=== PATIENT | male | born 1970 | race Caucasian/White ===

== ENCOUNTER 2016-05-25 11:27 | Outpatient (CLI) | payer OTHER | END 2016-05-25 11:28 | disposition home or self-care (01) | DX: G47.33 Obstructive sleep apnea (adult) (pediatric) (principal) ==

== ENCOUNTER 2016-11-06 12:34 | Outpatient (CLI) | payer OTHER ==
--- NOTE | 2016-11-06 14:08 | XRAY Report ---
EXAM: LUMBOSACRAL SPINE RADIOGRAPHY EXAM DATE: 11/06/2016 01:41 PM. CLINICAL HISTORY: Low back pain, rule out evidence of herniated disk. COMPARISONS: Lumbar MRI dated 11/06/2016. TECHNIQUE: 2 views. FINDINGS: Alignment: Normal. No spondylolisthesis or scoliosis. Bones: Five nsy-xta-zylueqe lumbar vertebral bodies are present. No fractures or bone lesions. Disks: Normal. Disk heights are maintained. Facets: No degenerative changes. Sacroiliac Joints: Unremarkable. Soft Tissues: Normal. The visualized bowel gas pattern is normal. IMPRESSION: Normal lumbar spine radiography. No disk space narrowing or degenerative changes identifi ed. [facility] Referring Provider Line: [phone] SITE ID: [id number]
--- NOTE | 2016-11-07 21:42 | MRI Report ---
EXAM: MRI LUMBAR SPINE WITHOUT CONTRAST EXAM DATE: 11/06/2016 01:32 PM. CLINICAL HISTORY: HERNIATED DISC VS OTHER PATHOLOGY, LOW BACK PAIN. COMPARISON: Radiograph lumbar spine 11/06/2016 TECHNIQUE: Multiplanar, multisequence T1-weighted and fluid-sensitive sequences of the lumbar spine f rom T12 to S1 without contrast. Other: None. FINDINGS: Spinal Cord: The conus terminates at L1. No signal abnormality in the visualized spinal cord. Alignment: Normal. No scoliosis or spondylolisthesis. Bone Marrow: Five fam-otf-aakcpoh lumbar vertebral bodies are assumed. No gross fractures or bone les ions. No bone marrow edema. Disk Levels/Facets: T12-L1: Unremarkable. L1-L2: Unremarkable. L2-L3: Unremarkable. L3-L4: Minimal disk bulge. No significant central canal or neuroforaminal narrowing. L4-L5: Mild disk bulge. Mild bilateral facet arthropathy. Mild anterior dural compression. No signifi cant central canal narrowing. Mild bilateral neuroforaminal narrowing. L5-S1: Mild disk bulge. Mild to moderate bilateral facet arthropathy. No significant central canal na rrowing. Mild bilateral neuroforaminal narrowing. Musculature: Normal. No edema or fatty atrophy. Other: The visualized pelvic cavity is unremarkable. IMPRESSION: 1. No evidence of fracture. No bone marrow edema. No cord signal abnormality at any level. Normal rita tomic alignment. 2. Mild degenerative spondylosis involving levels L3-L4 through L5-S1, as detailed above. No signific ant central canal narrowing at these or any other lumbar levels. Mild bilateral neuroforaminal narrow ing at L4-L5 and L5-S1 levels. No significant neuroforaminal narrowing elsewhere. Comment: The following findings are so common in adults without low back pain that while we report th eir presence, they must be interpreted with caution and in the context of the clinical situation. (Re becca Navarrete et al, Spine 2001) Prevalence of findings in patients without low back pain: Disk degeneration (any evidence): 92% Disk desiccation/T2 signal loss: 83% Disk height loss: 56% Disk bulge: 64% Disk protrusion: 32% Annular tear/high intensity zone: 38% [facility] Referring Provider Line: [phone] SITE ID: [id number]
== END 2016-11-06 12:35 | disposition home or self-care (01) ==
LOC: DI 12:34
DX: M47.896 Other spondylosis, lumbar region (principal); M47.897 Other spondylosis, lumbosacral region
CPT/HCPCS: 72100; 72148

== ENCOUNTER 2017-06-20 10:55 | Outpatient (CLI) | payer OTHER | END 2017-06-20 10:56 | disposition home or self-care (01) | LOC: SC 10:55 | PROVIDERS: ATTEND Nurse Practitioner Family | DX: G47.33 Obstructive sleep apnea (adult) (pediatric) (principal) | CPT/HCPCS: 99212; 99214 ==

== ENCOUNTER 2018-08-15 13:03 | Outpatient (CLI) | payer OTHER | END 2018-08-15 13:04 | disposition home or self-care (01) | LOC: SC 13:03 | PROVIDERS: ATTEND Nurse Practitioner Family | DX: G47.33 Obstructive sleep apnea (adult) (pediatric) (principal) | CPT/HCPCS: 99212; 99214 ==

== ENCOUNTER 2019-08-27 16:34 | Outpatient (CLI) | payer OTHER ==
--- NOTE | 2019-08-27 15:57 | SLEEP CARE CONSULTATION ---
Information from patient questionnaire entered by Brigitte Blackwell. I have reviewed and concur with the information entered by Brigitte Blackwell. This document represents the service I personally performed and the decisions made by me, Lizeth Ybarra MD, [facility]. History of Present Illness Service Date and Time: 08/27/2019 1400 Previous diagnosis: Mild, Obstructive Sleep Apnea-Hypopnea Syndrome AHI: 11.2 Reason for follow up: annual Equipment type: CPAP Equipment obtained from: [facility] additional information: To minimize the risk of COVID-19 exposure, the patient has requested and consented to this video telemedicine visit. The patient also agrees to having his insurance billed. HPI: Mr. Painting was called today to follow up on the nasal CPAP therapy. He was diagnosed to have mild obstructive sleep apnea-hypopnea syndrome. The patient wears a Respironics AmaraView full face mask. He reports using the device nightly and all through the night. The compliance report shows usage in 90 nights out of the past 90 nights, averaging 5.1 hours a night. The > 4 hour compliance rate for the past 90 days is 76.7%. He complained of no particular problem with the device such as soreness on the face, dry nose, epistaxis, nasal congestion or headache. He thinks that the pressure of 7 cmH2O is comfortable. On the CPAP therapy he notices improvement in his sleep quality, and that he wakes up feeling fresher in the morning and more awake/alert during the day. The average residual AHI is 2; and average time in large leak per day is 17.6 minutes. CPAP Compliance Data - Data Reviewed with Patient Average duration of nightly device use: 5h 6m Compliance rate %: 76.7 (90 days) Current pressure setting (cmH2O): 7 Average residual AHI: 2.0 Average large leak: 17m 37s Subjective Patient concerns: reports: other (transfer DME as problems getting supplies) Initial [place] Sleepiness Scale score: 6 Allergies and Home Medications Drug allergies reviewed: Yes Home medication list reviewed: Yes Review of Systems Review of systems same as previous: Yes Impression and Plan IMPRESSION: 1. Obstructive Sleep Apnea-Hypopnea Syndrome, mild, with the patient doing well on nasal CPAP therapy. He has good compliance and significant clinical improvement. The current pressure appears effective and comfortable. His mask fits well. Overall, he is very satisfied with treatment and plans to continue with it long-term. Because the CPAP is now older than the useful life of 5 years, I will order the patient a new one and make it an autoCPAP set between 5 and 8 cmH2O. PLAN: 1. Prescription made for an autoCPAP, heated humidifier, and related supplies. 2. Try to lose weight 3. Try other full face mask, e.g. Respironics DreamWear full face mask. 4. Return for follow up after one month on the new machine. Visit Type: Telehealth Video Video Type: CARGOBR Location of Provider: Home Patient agrees and consents to this telehealth visit type: Yes Time Spent with Patient (minutes): 15 Provider Statement: I spent 100% of the Telehealth Video Call with the patient with greater than 50% spent counseling the patient and coordination of care.
== END 2019-08-27 16:35 | disposition home or self-care (01) ==
LOC: SC 16:34
PROVIDERS: ATTEND Internal Medicine Pulmonary Disease
DX: G47.33 Obstructive sleep apnea (adult) (pediatric) (principal)
CPT/HCPCS: 99212; 99213

== ENCOUNTER 2019-09-28 17:47 | Outpatient (CLI) | payer OTHER ==
--- NOTE | 2019-09-30 02:38 | XRAY Report ---
Reason: Pain in right elbow Procedure Date: 09/28/2019 Accession Number: [id number] / [id number] Procedure: XR - Elbow 2 View RT CPT Code: Final Report FULL RESULT: EXAM: RIGHT ELBOW RADIOGRAPHY EXAM DATE: 09/28/2019 06:53 PM. CLINICAL HISTORY: Pain in right elbow. COMPARISON: None. TECHNIQUE: 2 views. FINDINGS: Bones: Normal. No fractures or bone lesions. Joints: Normal. No effusion. No subluxation. Soft Tissues: Normal. No soft tissue swelling. IMPRESSION: Normal elbow radiography. [facility]
== END 2019-09-28 17:48 | disposition home or self-care (01) ==
LOC: DI 17:47
PROVIDERS: ATTEND Nurse Practitioner Family
DX: M25.521 Pain in right elbow (principal)

== ENCOUNTER 2019-10-03 07:26 | Outpatient (CLI) | payer OTHER ==
--- NOTE | 2019-10-03 11:22 | MRI Report ---
Reason: PAIN RIGHT ELBOW Procedure Date: 10/03/2019 Accession Number: [id number] / [id number] Procedure: MRI - Elbow RT W/O CPT Code: Final Report FULL RESULT: EXAM: RIGHT ELBOW MRI WITHOUT CONTRAST EXAM DATE: 10/03/2019 08:56 AM. CLINICAL HISTORY: Pain right elbow. COMPARISON: ELBOW 2 VIEW RT 09/28/2019 6:44 PM. TECHNIQUE: Multiplanar, multisequence T1-weighted and fluid-sensitive sequences of the elbow without contrast. Other: None. FINDINGS: Bones and articular surfaces: No significant elbow joint effusion. No osteochondral lesions. No significant articular cartilage defect. Musculotendinous structures: Abnormal thickening and heterogenous increased T2 signal involving the common extensor origin. 2 x 3 x 1 mm focus of low-grade partial thickness intrasubstance tear at the common extensor origin. Prominent edema extends into the upper fibers of the extensor digitorum. Common flexor pronator origin appears intact. The biceps, triceps and brachialis insertions appear intact. Ligaments: The ulnar collateral, radial collateral and lateral ulnar collateral ligaments appear intact. Ulnar nerve: Normal course, signal and morphology. IMPRESSION: 1. Moderate tendinosis and low-grade intrasubstance tear at the common extensor origin. [facility]
== END 2019-10-03 07:27 | disposition home or self-care (01) ==
LOC: DI 07:26
PROVIDERS: ATTEND Nurse Practitioner Family
DX: M25.521 Pain in right elbow (principal); M67.823 Other specified disorders of tendon, right elbow

== ENCOUNTER 2020-09-24 16:41 | Outpatient (CLI) | payer BC, OTHER ==
[2020-09-24 19:55] LABS: BASOPHILS # (AUTO) 0.1 10^3/uL (0.0-0.1); BASOPHILS % (AUTO) 0.8 %; EOSINOPHILS # (AUTO) 0.2 10^3/uL (0.0-0.7); HCT - HEMATOCRIT 42.7 % (42.0-52.0); HGB - HEMOGLOBIN 14.1 g/dL (14.0-18.0); LYMPHOCYTES # (AUTO) 3.1 10^3/uL (1.5-3.5); MEAN CORPUSCULAR HEMOGLOBIN 31.6 pg (27.0-31.0); MEAN CORPUSCULAR VOLUME 95.7 fL (80.0-94.0); MONOCYTES # (AUTO) 0.6 10^3/uL (0.0-1.0); MONOCYTES % (AUTO) 8.3 %; NEUTROPHILS # (AUTO) 3.1 10^3/uL (1.5-6.6); NEUTROPHILS % (AUTO) 43.6 %; PLT - PLATELET COUNT 261 10^3/uL (130-450); RED BLOOD COUNT 4.46 10^6/uL (4.70-6.10); RED CELL DISTRIBUTION WIDTH 11.8 % (12.0-15.0); WHITE BLOOD COUNT 7.1 x10^3/uL (4.8-10.8)
[2020-09-24 20:17] LABS: ALBUMIN 4.4 g/dL (3.2-5.5); ALBUMIN/GLOBULIN RATIO 1.8 (1.0-2.2); BILIRUBIN,TOTAL 0.7 mg/dL (0.2-1.0); CALCIUM 9.5 mg/dL (8.5-10.3); CREATININE 0.9 mg/dL (0.6-1.2); POTASSIUM 3.9 mmol/L (3.5-5.0); TOTAL PROTEIN 6.8 g/dL (6.7-8.2)
== END 2020-09-24 16:42 | disposition home or self-care (01) ==
LOC: LAB.S 16:41
PROVIDERS: ATTEND Physician Assistant
DX: R10.31 Right lower quadrant pain (principal)
CPT/HCPCS: 36415; 80053; 85025

== ENCOUNTER 2020-10-02 16:40 | Outpatient (CLI) | payer BC ==
[2020-10-02 19:41] LABS: BASOPHILS % (AUTO) 0.7 %; EOSINOPHILS # (AUTO) 0.2 10^3/uL (0.0-0.7); EOSINOPHILS % (AUTO) 2.8 %; HCT - HEMATOCRIT 42.2 % (42.0-52.0); LYMPHOCYTES # (AUTO) 2.3 10^3/uL (1.5-3.5); LYMPHOCYTES % (AUTO) 38.2 %; MEAN CORPUSCULAR HEMOGLOBIN 31.7 pg (27.0-31.0); MEAN CORPUSCULAR HGB CONC 33.2 g/dL (32.0-36.0); MEAN CORPUSCULAR VOLUME 95.7 fL (80.0-94.0); MEAN PLATELET VOLUME 11.6 fL (7.4-11.4); MONOCYTES # (AUTO) 0.7 10^3/uL (0.0-1.0); NEUTROPHILS # (AUTO) 2.8 10^3/uL (1.5-6.6); NEUTROPHILS % (AUTO) 47.1 %; PLT - PLATELET COUNT 239 10^3/uL (130-450); RED BLOOD COUNT 4.41 10^6/uL (4.70-6.10); RED CELL DISTRIBUTION WIDTH 11.5 % (12.0-15.0)
[2020-10-02 20:19] LABS: FOLATE 12.77 ng/mL (5.90 - >24.8)
== END 2020-10-02 16:41 | disposition home or self-care (01) ==
LOC: LAB.S 16:40
PROVIDERS: ATTEND Physician Assistant
DX: R71.8 Other abnormality of red blood cells (principal)
CPT/HCPCS: 36415; 82607; 82746; 85025

== ENCOUNTER 2021-02-10 16:55 | Outpatient (CLI) | payer BC ==
--- NOTE | 2021-02-10 17:25 | SLEEP CARE CONSULTATION ---
Information from patient questionnaire entered by Brigitte Blackwell. I have reviewed and concur with the information entered by Brigitte Blackwell. This document represents the service I personally performed and the decisions made by me, Amber Craig ARNP. History of Present Illness Service Date and Time: 02/10/2021 1655 Previous diagnosis: Mild, Obstructive Sleep Apnea-Hypopnea Syndrome AHI: 11.2 Reason for follow up: annual Equipment type: CPAP Equipment obtained from: [employer] (getting supplies as needed) Mask style: Full face (Eli view) Backup mask available: Yes (old mask) Last cushion change: 2 weeks ago Prior sleep studies: Yes Year and Where: 2014 [facility] Type of Sleep Study: Polysomnography HPI additional information: DEBBIE BLACKMAN was diagnosed to have mild, AHI 11.2, obstructive sleep ap moshe-hypopnea syndrome and returned today for CPAP therapy annual follow-up. Sleep Study - Results Prior sleep studies: Yes Year and Where: 2014 [facility] CPAP Compliance Data - Data Reviewed with Patient Average duration of nightly device use: 5 hours 2 minutes Compliance rate %: 77.8 Current pressure setting (cmH2O): 5-8 Humidity settin Heated hose settin Average residual AHI: 7.2 Average large leak: 1 hour 25 minutes Subjective Missed days of use due to: reports: travel Patient concerns: denies: aerophagia, mask discomfort, air blowing in eyes, mask leak noise, condensation in mask/hose, nasal congestion, dry mouth, nose, throat, epistaxis, other Observed to snore while using device: No Current pressure setting perceived as: comfortable On therapy, patient: reports: sleeping better, awakening more refreshed, being more awake and alert during the day, more rested overall. denies: drowsiness while driving Initial [place] Sleepiness Scale score: 6 Current [place] Sleepiness Scale score: 1 Allergies and Home Medications Home medication list reviewed: Yes (no changes) Review of Systems Review of systems same as previous: Yes (no changes) Physical Exam Heart Rate: 68 O2 Saturation: 97 Height: 5 ft 6 in Weight: 155 lb Body Mass Index: 25.0 BMI Classification: Overweight Impression and Plan 1. Obstructive Sleep Apnea-Hypopnea Syndrome, mild, with good treatment compliance and fair apnea control with elevated residual AHI. He has large mask leaks with an elevated hypopnea index which is the most probable cause of the elevated residual AHI. He is otherwise very well controlled on current pressures. On CPAP therapy, the patient has better sleep quality and is more rested overall. I informed the patient that [employer] has a recall on several devices like the patients machine. Patient was encouraged to register their device online with [employer] for the recall to see if their device is affected. If their device is affected they should start a claim. Patient denies any black particles seen in machine or hoses, any unusual odors coming from device. Patient has not experienced any physical symptoms such as upper airway irritation, headache, skin or eye irritation, asthma, nausea/vomiting, difficulty breathing or chest pain. Patient informed that they may use an inline CPAP filter that they can obtain online to reduce chance of any particles being inhaled or ingested. We discussed thoroughly the health risks of not using the CPAP versus continuing use with the filter in place. If patient is not able to sleep due to waking up choking, gasping for air or other respiratory distress that they may decide to continue using it until it is either replaced or repaired. Patient voiced understanding and agreement with plan. Patient's apnea severity and rationale for treatment to reduce apnea, improve sleep quality and reduce cardiovascular and cerebrovascular events was reviewed. I also reviewed the benefit of consistent device use of CPAP for arrhythmia and anxiety. * Continue auto CPAP pressure at 5-8 cmH2O * Patient to register his device for the recall * Notify me if snoring with mask or feeling that the pressure is too much or too little * Attempt to lose weight * Call this office if any problems using CPAP * Return for follow up in 1 year, or sooner if concerns arise Counseling Topics: Spare mask, Weight loss health impact Visit Type: Telehealth Video Video Type: VSee Time Spent with Patient (minutes): 16 Provider Statement: I spent 100% of the Telehealth Video Call with the patient with greater than 50% spent counseling the patient and coordination of care.
== END 2021-02-10 16:56 | disposition home or self-care (01) ==
LOC: SC 16:55
PROVIDERS: ATTEND Nurse Practitioner Family
DX: G47.33 Obstructive sleep apnea (adult) (pediatric) (principal)
CPT/HCPCS: 99212

== ENCOUNTER 2022-09-18 08:00 | Outpatient (CLI) | payer OTHER ==
[2022-09-18 21:34] LABS: CHLAMYDIA TRACHOMATIS DNA NEGATIVE (NEGATIVE); NEISSERIA GONORRHOEAE DNA NEGATIVE (NEGATIVE); TRICHOMONAS VAGINALIS DNA NEGATIVE (NEGATIVE)
== END 2022-09-18 23:59 | disposition home or self-care (01) ==
LOC: LAB.S 08:00
PROVIDERS: ATTEND Emergency Medicine
DX: N48.89 Other specified disorders of penis (principal)
CPT/HCPCS: 87491; 87591; 87661

== ENCOUNTER 2022-09-21 10:41 | Outpatient (CLI) | payer OTHER ==
--- NOTE | 2022-09-21 10:01 | SLEEP CARE CONSULTATION ---
Information from patient questionnaire entered by Etelvina Ruiz. I have reviewed and concur with the information entered by Etelvina Ruiz. This document represents the service I personally performed and the decisions made by me, Amber Craig ARNP. History of Present Illness Service Date and Time: 09/21/2022 0940 Previous diagnosis: Mild, Obstructive Sleep Apnea-Hypopnea Syndrome AHI: 11.2 Reason for follow up: annual (LAST SEEN01/2021) Equipment type: CPAP ([employer] Dream[employer] recertified) Equipment obtained from: [employer] (has been getting online supplies) Mask style: Full face (Eli view) Mask brand: Respironics (Eli View) Backup mask available: Yes (old mask) Last cushion change: 1 month Prior sleep studies: Yes Year and Where: 2014 [facility] Type of Sleep Study: Polysomnography HPI additional information: DEBBIE BLACKMAN was diagnosed to have mild, AHI 11.2, obstructive sleep apnea-hypopnea syndrome and returns via video telehealth visit today for CPAP therapy annual follow-up. Sleep Study - Results Type of Sleep Study: Polysomnography Prior sleep studies: Yes Year and Where: 2014 [facility] CPAP Compliance Data - Data Reviewed with Patient Average duration of nightly device use: 4 HRS 47 MINS 9SECS Compliance rate %: 73.3 (04/02/2022-09/18/22; 167/180 days used) Current pressure setting (cmH2O): 5-8 Average residual AHI: 6.6 Central apnea: 0.0 Obstructive apnea: 0.3 Hypopnea: 6.3 Average large leak: 1 hour 25 minutes, 24 secs Subjective Missed days of use due to: reports: other (cpap on recall) Patient concerns: denies: aerophagia, mask discomfort, air blowing in eyes, mask leak noise, condensation in mask/hose, nasal congestion, dry mouth, nose, throat, epistaxis Observed to snore while using device: No Current pressure setting perceived as: comfortable On therapy, patient: reports: sleeping better, awakening more refreshed, being more awake and alert during the day, more rested overall. denies: drowsiness while driving Initial [place] Sleepiness Scale score: 6 Current [place] Sleepiness Scale score: 2 Allergies and Home Medications Known drug allergies: No Drug allergies reviewed: Yes Home medication list reviewed: Yes (no changes) Review of Systems Review of systems same as previous: No (fall last year, having some sacral pain) Physical Exam Vital signs obtained and entered by: per patient Height: 5 ft 6 in Weight: 163 lb (per patient) Body Mass Index: 26.3 BMI Classification: Overweight Impression and Plan 1. Obstructive Sleep Apnea-Hypopnea Syndrome, mild, with good treatment compliance and fair apnea control with mildly elevated residual AHI. On CPAP therapy, the patient has better sleep quality and is more rested overall. He has mildly elevated residual AHI but also a large leak of 1 hour and 25 minutes average. He uses a fullface mask and has a mustache, gets large leaks all the time which does seem to affect his residual AHI. He would like to continue at current pressures because they are comfortable and he feels he gets good results. Patient has significant improvement of their sleep apnea although if is slightly ineffective and is satisfied with current CPAP therapy. Patient denies problems with oral dryness, nasal congestion, epistaxis, skin irritation or aerophagia. Patient's apnea severity and rationale for treatment to reduce apnea, improve sleep quality and reduce cardiovascular and cerebrovascular events was reviewed. I also reviewed the benefit of consistent device use of CPAP for arrhythmia and anxiety. 2. Overweight, unspecified. Currently patients BMI is 26.3. Obesity increases the risk of apnea, CPAP pressure requirements and overall health risks especially cardiovascular and diabetes. Thus patient is advised to lose weight. * Continue auto CPAP pressure at 5-8 cmH2O * Update supplies * Notify me if snoring with mask or feeling that the pressure is too much or too little * Attempt to lose weight * Call this office if any problems using CPAP * Return for follow up in 1 year, or sooner if concerns arise Counseling Topics: Spare mask, Weight loss health impact Visit Type: Telehealth Video Video Type: Doximity Patient Location: Home Location of Provider: Office Patient agrees and consents to this telehealth visit type: Yes Patient agrees to have their insurance billed: Yes Time Spent with Patient (minutes): 20 Provider Statement: I spent 100% of the Telehealth Video Call with the patient with greater than 50% spent counseling the patient and coordination of care.
== END 2022-09-21 10:42 | disposition home or self-care (01) ==
LOC: SC 10:41
PROVIDERS: ATTEND Nurse Practitioner Family
DX: G47.33 Obstructive sleep apnea (adult) (pediatric) (principal); E66.3 Overweight; Z68.26 Body mass index [BMI] 26.0-26.9, adult

== ENCOUNTER 2022-11-20 19:12 | Emergency (ER) | payer OTHER ==
[2022-11-20 19:34] LABS: BASOPHILS # (AUTO) 0.1 10^3/uL (0.0-0.1); EOSINOPHILS # (AUTO) 0.1 10^3/uL (0.0-0.7); EOSINOPHILS % (AUTO) 1.6 %; HCT - HEMATOCRIT 42.5 % (42.0-52.0); HGB - HEMOGLOBIN 14.4 g/dL (14.0-18.0); LYMPHOCYTES # (AUTO) 2.3 10^3/uL (1.5-3.5); LYMPHOCYTES % (AUTO) 37.4 %; MEAN CORPUSCULAR HEMOGLOBIN 31.9 pg (27.0-31.0); MEAN CORPUSCULAR HGB CONC 33.9 g/dL (32.0-36.0); MONOCYTES # (AUTO) 0.6 10^3/uL (0.0-1.0); NEUTROPHILS # (AUTO) 3.1 10^3/uL (1.5-6.6); NEUTROPHILS % (AUTO) 50.8 %; PLT - PLATELET COUNT 259 10^3/uL (130-450); RED BLOOD COUNT 4.52 10^6/uL (4.70-6.10); RED CELL DISTRIBUTION WIDTH 11.7 % (12.0-15.0); WHITE BLOOD COUNT 6.1 x10^3/uL (4.8-10.8)
--- NOTE | 2022-11-20 19:36 | ED Physician Documentation ---
History of Present Illness - Stated complaint Stated Complaint: HEART PALPITATIONS - Chief complaint Chief Complaint: Cardiac - Additonal information Additional information: Patient 52-year-old male presenting to the emergency department with heart palpitations. Reports increasing palpitations worse at night for the last several days. Endorses for increased stress as well is regularly drinking several beers daily. Also reports history anxiety and has been using 2.5 mg lorazepam daily at home to help with this. Endorses for history of atrial fibrillation but has not had a known event of atrial fibrillation for the last 9 years. Review of Systems Constitutional: denies: Fever Eyes: denies: Loss of vision Ears: denies: Loss of hearing, Drainage/discharge Throat: denies: Dental pain / toothache Cardiac: reports: Palpitations. denies: Chest pain / pressure Respiratory: denies: Dyspnea GI: denies: Abdominal Pain : denies: Dysuria Skin: denies: Rash Musculoskeletal: denies: Neck pain PD PAST MEDICAL HISTORY - Past Medical History Cardiovascular: Atrial fibrillation - Present Medications Home Medications: Ambulatory Orders Medication Instructions Recorded Confirmed Potassium Bicarbonate 25 meq PO 0800 #30 tablet 11/20/22 [K-Effervescent] - Allergies Allergies/Adverse Reactions: Allergies Allergy/AdvReac Type Severity Reaction Status Date / Time [id number] Reductase AdvReac Cramps Verified 11/20/22 19:17 Inhibitor PD ED PE NORMAL - Vitals Vital signs reviewed: Yes - General General: Alert and oriented X 3, No acute distress, Well developed/nourished - HEENT HEENT: Atraumatic, PERRL, EOMI, Ears normal, Moist mucous membranes, Pharynx benign, Dentition benign - Neck Neck: Supple, no meningeal sign, No bony TTP, No adenopathy, Thyroid normal, No JVD - Cardiac Cardiac: RRR, No murmur, No gallop, No rub, Strong equal pulses - Respiratory Respiratory: No respiratory distress - Abdomen Abdomen: Normal bowel sounds - Male Male : Deferred - Rectal Rectal: Deferred - Derm Derm: Normal color - Extremities Extremities: No deformity - Neuro Neuro: Alert and oriented X 3, installer interior assemblies 2-12 intact, No motor deficit, No sensory deficit, Normal speech Results - Vitals Vitals: Vital Signs - 24 hr 11/20/22 19:14 Temperature 36.7 C Heart Rate 80 Respiratory 18 Rate Blood Pressure 161/97 H O2 Saturation 100 Oxygen O2 Source Room air - EKG (time done) 1920 EKG releavant findings:: EKG personally interpreted by author of this note. Relevant findings are: Sinus rhythm with rate 71 bpm. Normal axis. Normal MT, QRS, QTc intervals. No ST segment elevations or T wave inversions. - Labs Labs: Laboratory Tests 11/20/22 11/20/22 19:29 19:29 WBC 6.1 RBC 4.52 L Hgb 14.4 Hct 42.5 MCV 94.0 MCH 31.9 H MCHC 33.9 RDW 11.7 L Plt Count 259 MPV 10.0 Neut # (Auto) 3.1 Lymph # (Auto) 2.3 [place] # (Auto) 0.6 Eos # (Auto) 0.1 Baso # (Auto) 0.1 Absolute Nucleated RBC 0.00 Nucleated RBC % 0.0 Sodium 142 Potassium 3.3 L Chloride 106 Carbon Dioxide 30 Anion Gap 6.0 BUN 14 Creatinine 0.8 Estimated GFR (MDRD) 101 Glucose 113 H Calcium 9.5 Phosphorus 3.4 Magnesium 2.3 Total Bilirubin 0.7 AST 23 ALT 18 Alkaline Phosphatase 53 Total Protein 7.2 Albumin 4.2 Globulin 3.0 Albumin/Globulin Ratio 1.4 Lipase 31 PD Medical Decision Making - ED course Complexity details: reviewed results, considered differential, d/w patient ED course: Patient is 52-year-old male presenting to the emergency department with complaint of increasing heart palpitations. Afebrile, hematin stable on arrival to the emergency department. He endorsed for history of atrial fibrillation with last event 9 years ago. Not currently on prescription medications with the exception of lorazepam that he takes at home for anxiety. Also reported daily alcohol consumption. Reported increased stressors, seasonal allergies as well as a history of obstructive sleep apnea but states he has been using his BiPAP regularly. EKG is on above was negative for indications of acute cardiac ischemia or dysrhythmia. Labs obtained demonstrated a very mild hypokalemia but no other significant electrolyte abnormality. He was monitored carefully on telemetry for several hours and was found to have infrequent premature ventricular complexes. During my interview with the patient he did note that he felt a sensation of palpitations during these infrequent PVCs. Overall the rate of PVCs noted on telemetry is far less than approximately1 per 100 beats. Detailed conversation held with the patient about the nature of PVCs as well as the importance of follow-up with primary care. Additionally he was cautioned about his use of benzodiazepine and alcohol and we discussed the potential for overdose/oversedation when these substances are combined. We discussed the importance of discontinuing his daily caffeine intake, getting plenty of rest, Departure - Departure Disposition: 01 Home, Self Care Clinical Impression: PVC (premature ventricular contraction), Hypokalemia Instructions: ED Palpitations Prescriptions: Potassium Bicarbonate [K-Effervescent] 25 meq PO 0800 #30 tablet Comments: Thank you for allowing us to care for you today at [facility]. Today in the emergency department you were diagnosed with premature ventricular complexes. Premature ventricular complexes are common finding on EKGs and when patients are monitored in telemetry. In general they are not dangerous however they can be very anxiety provoking. It is important that you remove any potential cause that could contribute to frequent premature ventricular complexes such as alcohol, excess caffeine and that you get plenty of rest and otherwise drink plenty of fluids. Your potassium was very mildly low here in the emergency department and you were given supplementation. I have also written a p rescription for potassium to take at home which can be picked up at your preferred pharmacy, [facility] in [place]. Please make a follow-up appointment with your primary care doctor as they may wish to perform further testing. If it anytime you develop any new or worsening symptoms please do not hesitate to return.
--- OUTSIDE RECORDS SUMMARY | 2022-11-20 19:46 | EXTERNAL MEDICAL SUMMARY RPT | Continuity of Care Document ---
Author Name Unknown Address [address] [place] [address] Phone Organization [facility] Address [address] [place] [address] Phone Care Team Providers Care Broadcast Systems Engineer Name Role Phone Unavailable Unavailable Unavailable Khris Ovalles, Bernard Unavailable Unavailable Dewey Pérez, Nancy Unavailable Unavailable Prieto Moreno, Berhane Unavailable Unavailable Jim Moreno, Pamela Unavailable Unavailable Nurse, [facility] Unavailable Unavailab sarah Palomo Rn, Nancy Unavailable Unavailable Problems date description facility 2022-08-30 00:00 Cellulitis of left upper limb [facility] 2022-08-30 00:00 Cellulitis of left upper limb [facility] 2022-08-30 00:00 Cellulitis of left upper limb [facility] 2022-08-30 00:00 Cellulitis of left upper limb [facility] 2022-08-30 00:00 Cellulitis of left upper limb [facility] 2022-08-30 00:00 Cellulitis of left upper limb [facility] 2022-09-18 00:00 Pain in penis [facility] 2022-09-18 00:00 Pain in penis [facility] 2022-09-18 00:00 Pain in penis [facility] 2022-09-18 00:00 Pain in penis [facility] 2022-09-18 00:00 Pain in penis [facility] 2022-09-18 00:00 Unspecified disorder of penis [facility] 2022-09-18 00:00 Unspecified disorder of penis [facility] 2022-09-18 00:00 Unspecified disorder of penis [facility] 2022-09-18 00:00 Unspecified disorder of penis [facility] 2022-09-18 00:00 Unspecified disorder of penis [facility] 2022-09-18 00:00 Other specified disorders of pe nis [facility] 2022-09-18 00:00 Other specified disorders of pe nis [facility] 2022-09-18 00:00 Other specified disorders of pe nis [facility] 2022-09-18 00:00 Other specified disorders of pe nis [facility] 2022-09-18 00:00 Other specified disorders of pe nis [facility] Procedures date description facility 2022-08-30 00:00 Visit Code Hold [facility] 2022-08-30 00:00 Visit Code [facility] 2022-08-30 00:00 Visit Code [facility] 2022-08-30 00:00 Visit Code Hold [facility] 2022-08-30 00:00 Visit Code [facility] 2022-08-30 00:00 Visit Code [facility] 2022-09-18 00:00 Visit Code Hold [facility] 2022-09-18 00:00 Visit Code Hold [facility] 2022-09-18 00:00 Visit Code Hold [facility] 2022-09-18 00:00 Visit Code [facility] 2022-09-18 00:00 Visit Code Hold [facility] 2022-09-18 00:00 POC URINALYSIS DIP [facility] 2022-09-18 00:00 POC URINALYSIS DIP [facility] 2022-09-18 00:00 POC URINALYSIS DIP [facility] 2022-09-18 00:00 POC URINALYSIS DIP [facility] 2022-09-18 00:00 POC URINALYSIS DIP [facility] Results/Labs test date author facility value unit interpretation Result panel 1 (unknown) (no date) (unknown) [facility] (no value) (units unknown) (unknown) Result panel 2 (unknown) (no date) (unknown) [facility] (no value) (units unknown) (unknown) Result panel 3 (unknown) (no date) (unknown) [facility] (no value) (units unknown) (unknown) Result panel 4 (unknown) (no date) (unknown) [facility] (no value) (units unknown) (unknown) Result panel 5 (unknown) (no date) (unknown) [facility] (no value) (units unknown) (unknown) Result panel 6 (unknown) (no date) (unknown) [facility] (no value) (units unknown) (unknown) Result panel 7 (unknown) (no date) (unknown) [facility] (no value) (units unknown) (unknown) Result panel 8 (unknown) (no date) (unknown) [facility] (no value) (units unknown) (unknown) Result panel 9 (unknown) (no date) (unknown) [facility] (no value) (units unknown) (unknown) Result panel 10 (unknown) (no date) (unknown) [facility] (no value) (units unknown) (unknown) Result panel 11 (unknown) (no date) (unknown) [facility] (no value) (units unknown) (unknown) Result panel 12 (unknown) (no date) (unknown) [facility] (no value) (units unknown) (unknown) Result panel 13 (unknown) (no date) (unknown) [facility] (no value) (units unknown) (unknown) Result panel 14 (unknown) (no date) (unknown) [facility] (no value) (units unknown) (unknown) Result panel 15 (unknown) (no date) (unknown) [facility] (no value) (units unknown) (unknown) Result panel 16 (unknown) (no date) (unknown) [facility] (no value) (units unknown) (unknown) Result panel 17 (unknown) (no date) (unknown) [facility] (no value) (units unknown) (unknown) Result panel 18 (unknown) (no date) (unknown) [facility] (no value) (units unknown) (unknown) Result panel 19 (unknown) (no date) (unknown) [facility] (no value) (units unknown) (unknown) Result panel 20 (unknown) (no date) (unknown) [facility] (no value) (units unknown) (unknown) Result panel 21 (unknown) (no date) (unknown) [facility] (no value) (units unknown) (unknown) Result panel 22 (unknown) (no date) (unknown) [facility] (no value) (units unknown) (unknown) Result panel 23 (unknown) (no date) (unknown) [facility] (no value) (units unknown) (unknown) Result panel 24 (unknown) (no date) (unknown) [facility] (no value) (units unknown) (unknown) Result panel 25 (unknown) (no date) (unknown) [facility] (no value) (units unknown) (unknown) Result panel 26 (unknown) (no date) (unknown) [facility] (no value) (units unknown) (unknown) Result panel 27 (unknown) (no date) (unknown) [facility] (no value) (units unknown) (unknown) Result panel 28 (unknown) (no date) (unknown) [facility] (no value) (units unknown) (unknown) Result panel 29 (unknown) (no date) (unknown) [facility] (no value) (units unknown) (unknown) Result panel 30 (unknown) (no date) (unknown) [facility] (no value) (units unknown) (unknown) Result panel 31 (unknown) (no date) (unknown) [facility] (no value) (units unknown) (unknown) Result panel 32 (unknown) (no date) (unknown) [facility] (no value) (units unknown) (unknown) Result panel 33 (unknown) (no date) (unknown) [facility] (no value) (units unknown) (unknown) Result panel 34 (unknown) (no date) (unknown) [facility] (no value) (units unknown) (unknown) Result panel 35 (unknown) (no date) (unknown) [facility] (no value) (units unknown) (unknown) Result panel 36 (unknown) (no date) (unknown) [facility] (no value) (units unknown) (unknown) Result panel 37 (unknown) (no date) (unknown) [facility] (no value) (units unknown) (unknown) Result panel 38 (unknown) (no date) (unknown) [facility] (no value) (units unknown) (unknown) Result panel 39 (unknown) (no date) (unknown) [facility] (no value) (units unknown) (unknown) Result panel 40 (unknown) (no date) (unknown) [facility] (no value) (units unknown) (unknown) Result panel 41 (unknown) (no date) (unknown) [facility] (no value) (units unknown) (unknown) Result panel 42 (unknown) (no date) (unknown) [facility] (no value) (units unknown) (unknown) Result panel 43 (unknown) (no date) (unknown) [facility] (no value) (units unknown) (unknown) Result panel 44 (unknown) (no date) (unknown) [facility] (no value) (units unknown) (unknown) Result panel 45 (unknown) (no date) (unknown) [facility] (no value) (units unknown) (unknown) Result panel 46 (unknown) (no date) (unknown) [facility] (no value) (units unknown) (unknown) Result panel 47 (unknown) (no date) (unknown) [facility] (no value) (units unknown) (unknown) Result panel 48 (unknown) (no date) (unknown) [facility] (no value) (units unknown) (unknown) Result panel 49 (unknown) (no date) (unknown) [facility] (no value) (units unknown) (unknown) Result panel 50 (unknown) (no date) (unknown) [facility] (no value) (units unknown) (unknown) Result panel 51 (unknown) (no date) (unknown) [facility] (no value) (units unknown) (unknown) Result panel 52 (unknown) (no date) (unknown) [facility] (no value) (units unknown) (unknown) Result panel 53 (unknown) (no date) (unknown) [facility] (no value) (units unknown) (unknown) Result panel 54 (unknown) (no date) (unknown) [facility] (no value) (units unknown) (unknown) Result panel 55 (unknown) (no date) (unknown) [facility] (no value) (units unknown) (unknown) Result panel 56 (unknown) (no date) (unknown) [facility] (no value) (units unknown) (unknown) Result panel 57 (unknown) (no date) (unknown) [facility] (no value) (units unknown) (unknown) Result panel 58 (unknown) (no date) (unknown) [facility] (no value) (units unknown) (unknown) Result panel 59 (unknown) (no date) (unknown) [facility] (no value) (units unknown) (unknown) Result panel 60 (unknown) (no date) (unknown) [facility] (no value) (units unknown) (unknown) Result panel 61 (unknown) (no date) (unknown) [facility] (no value) (units unknown) (unknown) Result panel 62 (unknown) (no date) (unknown) [facility] (no value) (units unknown) (unknown) Result panel 63 (unknown) (no date) (unknown) [facility] (no value) (units unknown) (unknown) Result panel 64 (unknown) (no date) (unknown) [facility] (no value) (units unknown) (unknown) Result panel 65 (unknown) (no date) (unknown) [facility] (no value) (units unknown) (unknown) Result panel 66 (unknown) (no date) (unknown) [facility] (no value) (units unknown) (unknown) Result panel 67 (unknown) (no date) (unknown) [facility] (no value) (units unknown) (unknown) Result panel 68 (unknown) (no date) (unknown) [facility] (no value) (units unknown) (unknown) Result panel 69 (unknown) (no date) (unknown) [facility] (no value) (units unknown) (unknown) Result panel 70 (unknown) (no date) (unknown) [facility] (no value) (units unknown) (unknown) Result panel 71 (unknown) (no date) (unknown) [facility] (no value) (units unknown) (unknown) Result panel 72 (unknown) (no date) (unknown) [facility] (no value) (units unknown) (unknown) Result panel 73 (unknown) (no date) (unknown) [facility] (no value) (units unknown) (unknown) Result panel 74 (unknown) (no date) (unknown) [facility] (no value) (units unknown) (unknown) Result panel 75 (unknown) (no date) (unknown) [facility] (no value) (units unknown) (unknown) Result panel 76 (unknown) (no date) (unknown) [facility] (no value) (units unknown) (unknown) Result panel 77 (unknown) (no date) (unknown) [facility] (no value) (units unknown) (unknown) Result panel 78 (unknown) (no date) (unknown) [facility] (no value) (units unknown) (unknown) Result panel 79 (unknown) (no date) (unknown) [facility] (no value) (units unknown) (unknown) Result panel 80 (unknown) (no date) (unknown) [facility] (no value) (units unknown) (unknown) Result panel 81 (unknown) (no date) (unknown) [facility] (no value) (units unknown) (unknown) Result panel 82 (unknown) (no date) (unknown) [facility] (no value) (units unknown) (unknown) Result panel 83 (unknown) (no date) (unknown) [facility] (no value) (units unknown) (unknown) Result panel 84 (unknown) (no date) (unknown) [facility] (no value) (units unknown) (unknown) Social History date description facility 2022-08-30 00:00 Former smoker [facility] 2022-08-30 00:00 Former smoker [facility] 2022-08-30 00:00 Former smoker [facility] 2022-08-30 00:00 Former smoker [facility] 2022-08-30 00:00 Former smoker [facility] [place] 2022-08-30 00:00 Former smoker [facility] 2022-09-18 00:00 Former smoker [facility] 2022-09-18 00:00 Former smoker [facility] [place] 2022-09-18 00:00 Former smoker [facility] 2022-09-18 00:00 Former smoker [facility] 2022-09-18 00:00 Former smoker [facility] Vital Signs date measurement value units 2022-08-30 00:00 BMI 27.21 kg/m2 2022-08-30 00:00 BP_diastolic 81 mmHg 2022-08-30 00:00 BP_systolic 125 mmHg 2022-08-30 00:00 heart_rate 71 /min 2022-08-30 00:00 height_metric 167.64 cm 2022-08-30 00:00 height_standard 66 in 2022-08-30 00:00 respiration_rate 16 /min 2022-08-30 00:00 temperature_metric 36.56 C 2022-08-30 00:00 temperature_standard 97.8 F 2022-08-30 00:00 weight_metric 76.2 kg 2022-08-30 00:00 weight_standard 168 lb 2022-09-18 00:00 BMI 26.73 kg/m2 2022-09-18 00:00 BP_diastolic 80 mmHg 2022-09-18 00:00 BP_systolic 138 mmHg 2022-09-18 00:00 heart_rate 87 /min 2022-09-18 00:00 height_metric 167.64 cm 2022-09-18 00:00 height_standard 66 in 2022-09-18 00:00 respiration_rate 14 /min 2022-09-18 00:00 temperature_metric 36.33 C 2022-09-18 00:00 temperature_standard 97.4 F 2022-09-18 00:00 weight_metric 74.84 kg 2022-09-18 00:00 weight_standard 165 lb
[2022-11-20 19:49] LABS: ALBUMIN 4.2 g/dL (3.2-5.5); ALBUMIN/GLOBULIN RATIO 1.4 (1.0-2.2); BILIRUBIN,TOTAL 0.7 mg/dL (0.2-1.0); CALCIUM 9.5 mg/dL (8.5-10.3); CREATININE 0.8 mg/dL (0.6-1.2); MAGNESIUM 2.3 mg/dL (1.7-2.8); PHOSPHORUS 3.4 mg/dL (2.5-4.6); POTASSIUM 3.3 mmol/L (3.5-5.0); TOTAL PROTEIN 7.2 g/dL (6.7-8.2)
[2022-11-20] MEDS ORDERED: POTASSIUM CHLORIDE 20 MEQ/15 ML UDC PO SCH (20:15)
--- NOTE | 2022-11-20 20:25 | XRAY Report ---
PROCEDURE: Chest 1 View X-Ray INDICATIONS: Chest Pain TECHNIQUE: One view of the chest was acquired. COMPARISON: None. FINDINGS: Surgical changes and devices: Cervical spine hardware. Lungs and pleura: No pleural effusions or pneumothorax. Lungs are clear. Mediastinum: Mediastinal contours appear normal. Heart size is normal. Bones and chest wall: No suspicious bony lesions. Overlying soft tissues appear unremarkable. IMPRESSION: No acute cardiopulmonary process. Reviewed by: Carlita Serra MD on 11/20/2022 8:24 PM PDT Approved by: Carlita Serra MD on 11/20/2022 8:24 PM PDT Station ID: [id number]
[2022-11-20 20:34] VITALS: BP 133/62
[2022-11-20] MEDS ORDERED: MAGNESIUM OXIDE 400 MG TABLET PO SCH (21:00)
== END 2022-11-20 20:35 | disposition home or self-care (01) ==
LOC: ED 19:12
DX: I49.3 Ventricular premature depolarization (principal); E87.6 Hypokalemia; F41.9 Anxiety disorder, unspecified
CPT/HCPCS: 36415; 71045; 80053; 83690; 83735; 84100; 85025; 93005; 99284; A9270

== ENCOUNTER 2023-09-23 16:03 | Outpatient (CLI) | payer OTHER ==
--- NOTE | 2023-09-23 16:02 | SLEEP CARE CONSULTATION ---
Information from patient questionnaire entered by Etelvina Ruiz. I have reviewed and concur with the information entered by Etelvina Ruiz. This document represents the service I personally performed and the decisions made by me, Amber Craig ARNP. History of Present Illness Service Date and Time: 09/23/2023 1540 Previous diagnosis: Mild, Obstructive Sleep Apnea-Hypopnea Syndrome AHI: 11.2 Reason for follow up: annual (LAST SEEN 09/2022) Equipment type: CPAP ([employer] Dreamstation recertified) Equipment obtained from: [employer] (getting supplies) Mask style: Full face (Eli View) Backup mask available: Yes Last cushion change: 1 week Prior sleep studies: Yes Year and Where: 2014 [facility] Type of Sleep Study: Polysomnography HPI additional information: DEBBIE BLACKMAN was diagnosed to have mild, AHI 11.2, obstructive sleep apnea-hypopnea syndrome and returns via video appointment today for CPAP therapy annual follow-up. Sleep Study - Results Type of Sleep Study: Polysomnography Prior sleep studies: Yes Year and Where: 2014 [facility] CPAP Compliance Data - Data Reviewed with Patient Average duration of nightly device use: 5 hours 33 mins Compliance rate %: 71.1 (06/24/2023-09/21/2023; 81/90 days used) Current pressure setting (cmH2O): 7 Average residual AHI: 5.5 Central apnea: 0.1 Obstructive apnea: 0.5 Hypopnea: 4.9 Average large leak: 58 minutes Subjective Missed days of use due to: reports: travel, other (having problems getting supplies) Patient concerns: denies: aerophagia, mask discomfort, air blowing in eyes, mask leak noise, condensation in mask/hose, nasal congestion, dry mouth, nose, throat, epistaxis Observed to snore while using device: No Current pressure setting perceived as: comfortable On therapy, patient: reports: sleeping better, awakening more refreshed, being more awake and alert during the day, more rested overall. denies: drowsiness while driving Initial Union Sleepiness Scale score: 6 Current Union Sleepiness Scale score: 0 (09/23/23) Allergies and Home Medications Known drug allergies: Yes (as listed) Drug allergies reviewed: Yes Home medication list reviewed: Yes (no changes) Allergy and home medication list: Allergies [id number] Reductase Inhibitor Adverse Reaction (Verified 09/21/23 11:57) Cramps Review of Systems Review of systems same as previous: No (NERVE DAMMAGE) Physical Exam Vital signs obtained and entered by: ETELVINA Franco MA Height: 5 ft 6 in (PER PT) Weight: 160 lb (PER PT) Body Mass Index: 25.8 BMI Classification: Overweight Impression and Plan 1. Obstructive Sleep Apnea-Hypopnea Syndrome, mild, with good treatment compliance and good apnea control with minimal elevation of residual AHI. On CPAP therapy, the patient has better sleep quality and is more rested overall. He has been compliant with using his machine over the last 3 months and has significant improvement of his sleep apnea although it is minimally ineffective. The patients pressure will be changed to autoCPAP 8 cmH20 for elevation of residual AHI. Patient advised to contact me if pressure change is uncomfortable so that it can be adjusted. Goals for apnea control discussed. Patient's apnea severity and rationale for treatment to reduce apnea, improve sleep quality and reduce cardiovascular and cerebrovascular events was reviewed. I also reviewed the benefit of consistent device use of CPAP for arrhythmia, diabetes, anxiety. His BMI is 25.3, he has lost weight since last appointment. * Change CPAP pressure to 8 cmH2O * Notify me if snoring with mask or feeling that the pressure is too much or too little * Maintain healthy weight * Call this office if any problems using CPAP * Return for follow up in 12 months, or sooner if concerns arise Adjust device pressure to (cmH2O): 8 Counseling Topics: Weight loss health impact Prescriptions: Device supplies Follow up with [facility] in: 1 year Visit Type: Telehealth Video Video Type: [facility] Patient Location: Home Location of Provider: Office Patient agrees and consents to this telehealth visit type: Yes Time Spent with Patient (minutes): 20 Provider Statement: I spent 100% of the Telehealth Video Call with the patient with greater than 50% spent counseling the patient and coordination of care.
== END 2023-09-23 16:04 | disposition home or self-care (01) ==
LOC: SC 16:03
PROVIDERS: ATTEND Nurse Practitioner Family
DX: G47.33 Obstructive sleep apnea (adult) (pediatric) (principal); E66.3 Overweight; Z68.25 Body mass index [BMI] 25.0-25.9, adult
CPT/HCPCS: 99212